=== PATIENT | male | born 1985 | race African-American/Black ===

== ENCOUNTER 2017-02-27 18:35 | Emergency (ER) | payer MEDICAID ==
[~2017-02-27] VITALS: Ht 177.8 cm; Wt 82.6 kg
--- NOTE | 2017-02-27 18:35 | NUR ---
BIB RA 60,SOB/WHEEZING, ALBUTEROL HHN X 2(10 MG) GIVEN ENROUTE. NAD NOTED. PT IS ANXIOUS, CRYING, AAO X4, AMB WITH STEADY GAIT. PENDING MD FOR EVAL.
[2017-02-27] MEDS ORDERED: predniSONE 20 MG TABLET ONE (18:40)
[2017-02-27] MEDS ORDERED: IPRATROPIUM NEB FS 0.5 MG/2.5 ML AMPUL.NEB ONE (18:40)
[2017-02-27] MEDS ORDERED: ALBUTEROL FS 2.5 MG/3 ML VIAL.NEB ONE (18:40)
[2017-02-27] MEDS ORDERED: ALBU8.5H2 IH (18:42)
[2017-02-27] MEDS ORDERED: HYDR12.5 PO (18:42)
[2017-02-27] MEDS: ALBUTEROL FS 2.5 MG/3 ML VIAL.NEB NEB ONE (18:46)
[2017-02-27] MEDS: IPRATROPIUM NEB FS 0.5 MG/2.5 ML AMPUL.NEB NEB ONE (18:46)
--- NOTE | 2017-02-27 18:46 | NUR ---
TIHAGO RT AT BEDSIDE FOR BREATHING TX
[2017-02-27] MEDS: predniSONE 20 MG TABLET PO ONE (18:51)
--- NOTE | 2017-02-27 19:00 | NUR ---
Assumed care of pt. pt lying in bed w/ resp even & unlabored, bp elevated w/ nad distress noted. Dr. Justin notified of elevated BP.
--- NOTE | 2017-02-27 19:24 | NUR ---
Dr. Justin at bedside for further eval. pt asleep in bed w/ resp even & unlabored, easily arousable, denies any pain w/ nad noted.
[2017-02-27] MEDS ORDERED: ALBUTEROL FS 2.5 MG/0.5 ML VIAL.NEB ONE (19:41)
--- NOTE | 2017-02-27 19:42 | NUR ---
DIRECTOR LABOR STANDARDS called for breathing tx.
--- NOTE | 2017-02-27 19:46 | NUR ---
CONVERSION MAN at bedside for breathing tx.
[2017-02-27] MEDS: ALBUTEROL FS 2.5 MG/0.5 ML VIAL.NEB NEB ONE (19:47)
[2017-02-27 20:06] VITALS: BP 167/98
--- NOTE | 2017-02-27 20:07 | NUR ---
Patient ambulatory w/ steady gait, resp even & unlabored with no acute distress noted, discharged to home in stable condition. Written and verbal after care instructions given along with prescriptions. Patient verbalizes understanding of instruction.
== END 2017-02-27 20:09 | disposition home or self-care (01) ==
LOC: ER 18:37
DX: J45.909 Unspecified asthma, uncomplicated (principal); I10 Essential (primary) hypertension
CPT/HCPCS: 71010-TC; A4606

== ENCOUNTER 2017-03-05 22:05 | Emergency (ER) | payer MEDICAID ==
[~2017-03-05] VITALS: Ht 177.8 cm; Wt 77.1 kg
[~2017-03-05 22:05] MED LIST: ALBU8.5H2 IH; HYDR12.5 PO
[2017-03-05 22:20] VITALS: BP 183/118
[2017-03-06] MEDS: IVERMECTIN 3 MG TABLET PO ONE (00:16)
== END 2017-03-06 00:42 | disposition home or self-care (01) ==
LOC: ER 22:07
DX: B86 Scabies (principal); Z59.0 Homelessness; J45.909 Unspecified asthma, uncomplicated; I10 Essential (primary) hypertension; W57.XXXA Bitten or stung by nonvenomous insect and other nonvenomous arthropods, initial encounter; Y93.89 Activity, other specified; Y92.89 Other specified places as the place of occurrence of the external cause; Y99.8 Other external cause status
CPT/HCPCS: 99283; A4606; Z7610

== ENCOUNTER 2017-03-10 18:54 | Emergency (ER) | payer MEDICAID ==
[~2017-03-10] VITALS: Ht 177.8 cm; Wt 79.4 kg
--- NOTE | 2017-03-10 18:56 | NUR ---
PT AMBULATORY TO ER BED 14 C/O SOB. 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 PLACED ON MONITOR. AWAITING MD MORGAN.
--- NOTE | 2017-03-10 19:06 | NUR ---
DR BANERJEE AT BEDSIDE FOR EVAL.
[2017-03-10] MEDS ORDERED: HYDROCHLOROTHIAZIDE 25 MG TABLET ONE (19:08)
[2017-03-10] MEDS ORDERED: ALBUTEROL FS 2.5 MG/0.5 ML VIAL.NEB NEB ONE (19:30)
[2017-03-10] MEDS ORDERED: HYDROCHLOROTHIAZIDE 25 MG TABLET PO ONE (19:30)
[2017-03-10] MEDS ORDERED: ALBUTEROL FS 2.5 MG/3 ML VIAL.NEB ONE (19:52)
--- NOTE | 2017-03-10 19:53 | NUR ---
RT AT BEDSIDE FOR BREATHING TREATMENT.
--- NOTE | 2017-03-10 20:35 | NUR ---
Patient discharged to home in stable condition. Written and verbal after care instructions given. Patient verbalizes understanding of instruction.
[2017-03-10 20:36] VITALS: BP 156/99
== END 2017-03-10 20:36 | disposition home or self-care (01) ==
LOC: ER 18:56
DX: Z76.0 Encounter for issue of repeat prescription (principal); J45.909 Unspecified asthma, uncomplicated; I10 Essential (primary) hypertension; R21 Rash and other nonspecific skin eruption; Z59.0 Homelessness
CPT/HCPCS: 94640; 99283; A4606; Z7610

== ENCOUNTER 2017-03-11 05:19 | Emergency (ER) | payer MEDICAID ==
[~2017-03-11] VITALS: Ht 177.8 cm; Wt 83.9 kg
[2017-03-11] MEDS ORDERED: DEXAMETHASONE SOD PHOSPHATE 10 MG/ML VIAL ONE (05:24)
[2017-03-11] MEDS ORDERED: HYDROCHLOROTHIAZIDE 25 MG TABLET ONE (05:27)
[2017-03-11] MEDS ORDERED: DEXAMETHASONE SOD PHOSPHATE 4 MG/ML VIAL IV ONE (05:30)
[2017-03-11] MEDS ORDERED: ALBUTEROL FS 2.5 MG/3 ML VIAL.NEB NEB ONE (05:30)
[2017-03-11] MEDS ORDERED: ALBUTEROL FS 2.5 MG/3 ML VIAL.NEB ONE (05:32)
--- NOTE | 2017-03-11 05:37 | NUR ---
RT IS AT THE BEDSIDE FOR BREATHING TX.
[2017-03-11] MEDS ORDERED: HYDROCHLOROTHIAZIDE 25 MG TABLET PO ONE (06:00)
[2017-03-11 06:25] VITALS: BP 182/92
== END 2017-03-11 06:25 | disposition home or self-care (01) ==
LOC: ER 05:20
DX: J45.901 Unspecified asthma with (acute) exacerbation (principal); I10 Essential (primary) hypertension; Z91.19 Patient's noncompliance with other medical treatment and regimen
CPT/HCPCS: A4606; J1100; Z7610

== ENCOUNTER 2017-03-20 22:15 | Emergency (ER) | payer MEDICAID ==
[~2017-03-20] VITALS: Ht 175.3 cm; Wt 83.9 kg
--- NOTE | 2017-03-20 22:17 | NUR ---
PT BIB RA AND TAKEN TO ROOM #4 WITH A C/O ASTHMA EXACERBATION. PT REC'D A BREATHING TX IN THE FIELD AND IS SPEAKING IN FULL SENTENCES. O2 SAT ON RA IS 94%. PT IS ON THE MONITOR AND CONTINOUS PULSE OX. PT IS HYPERTENSIVE AT THIS TIME AND SLIGHTLY TACHY WITH HR 114. PT AA&O X4. RESP EVEN AND UNLABORED.
[2017-03-20] MEDS ORDERED: predniSONE 20 MG TABLET PO ONE (22:30)
[2017-03-20] MEDS ORDERED: IPRATROPIUM NEB FS 0.5 MG/2.5 ML AMPUL.NEB NEB ONE (22:30)
[2017-03-20] MEDS ORDERED: ALBUTEROL FS 2.5 MG/3 ML VIAL.NEB NEB ONE (22:30)
[2017-03-20] MEDS ORDERED: predniSONE 20 MG TABLET ONE (22:31)
--- NOTE | 2017-03-20 22:35 | NUR ---
CALLED RT RE: BREATHING TX FOR PT.
--- NOTE | 2017-03-20 22:36 | NUR ---
PT REC'D MEDICATION ORDERED.
[2017-03-20] MEDS ORDERED: ALBUTEROL FS 2.5 MG/3 ML VIAL.NEB ONE (22:48)
[2017-03-20] MEDS ORDERED: IPRATROPIUM NEB FS 0.5 MG/2.5 ML AMPUL.NEB ONE (22:48)
[2017-03-20] MEDS ORDERED: ALBUTEROL SULFATE 8 GM HFA.AER.AD IH ONE ×2 (23:00→23:30)
[2017-03-20] MEDS ORDERED: ALBUTEROL 17GM INHALER ONE (23:01)
--- NOTE | 2017-03-20 23:35 | NUR ---
Patient discharged to home in stable condition. Written and verbal after care instructions given. Patient verbalizes understanding of instruction AND RX. PT AMBULATED OUT WITH A STEADY GAIT. VSS.
[2017-03-20 23:37] VITALS: BP 168/106
== END 2017-03-20 23:37 | disposition home or self-care (01) ==
LOC: ER 22:18
DX: J45.909 Unspecified asthma, uncomplicated (principal); I10 Essential (primary) hypertension; Z59.0 Homelessness
CPT/HCPCS: A4606; Z7610

== ENCOUNTER 2017-05-06 14:18 | Emergency (ER) | payer MEDICAID ==
[~2017-05-06] VITALS: Ht 177.8 cm; Wt 83.9 kg
[2017-05-06] MEDS ORDERED: methylPREDNISolone SOD SUCC 125 MG/2ML VIAL ONE (14:21)
[2017-05-06] MEDS ORDERED: Magnesium 1 GM/2 ML VIAL ONE (14:23)
[2017-05-06] MEDS ORDERED: Magnesium 1GM/D5W 100ML PREMIX 100 ML IV ONE (14:24)
[2017-05-06] MEDS ORDERED: IPRATROPIUM NEB FS 0.5 MG/2.5 ML AMPUL.NEB ONE (14:31)
[2017-05-06] MEDS ORDERED: ALBUTEROL FS 2.5 MG/3 ML VIAL.NEB ONE (14:31)
[2017-05-06] MEDS ORDERED: methylPREDNISolone SOD SUCC 125 MG/2ML VIAL IV ONE (15:00)
[2017-05-06] MEDS ORDERED: ALBUTEROL FS 2.5 MG/3 ML VIAL.NEB CONTNEB ONE (15:00)
[2017-05-06] MEDS ORDERED: IPRATROPIUM NEB FS 0.5 MG/2.5 ML AMPUL.NEB NEB ONE (15:00)
[2017-05-06] MEDS ORDERED: Magnesium 1GM/D5W 100ML PREMIX PIGGYBACK IV ONE (15:00)
[2017-05-06 17:02] VITALS: BP 160/94
== END 2017-05-06 17:03 | disposition home or self-care (01) ==
LOC: ER 14:21
DX: J45.901 Unspecified asthma with (acute) exacerbation (principal); I10 Essential (primary) hypertension; Z59.0 Homelessness; Z87.891 Personal history of nicotine dependence
CPT/HCPCS: 71010-TC; A4606; J2930; J3475; J7030; Z7610

== ENCOUNTER 2017-09-07 13:11 | Inpatient (IN) | payer MEDICAID ==
[~2017-09-07] VITALS: Ht 177.8 cm; Wt 95.3 kg
[~2017-09-07 13:11] MED LIST changes: -ALBU8.5H2 IH; +ALBU8.5H8 IH
--- NOTE | 2017-09-07 13:18 | NUR ---
PT BIBRA TO ER BED 14. C/O COUGH AND CONGESTION, FLU SYMPTOMS X 1 MONTH. 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 GENERALIZED WEAKNESS. PT IS AFEBRILE TRAINING GENERALIST. AWAITING MD MORGAN.
--- NOTE | 2017-09-07 13:44 | NUR ---
CHARIS KHALIL AT BEDSIDE FOR EVAL.
[2017-09-07] MEDS ORDERED: ALBUTEROL FS 2.5 MG/3 ML VIAL.NEB ONE ×2 (13:53→14:40)
[2017-09-07] MEDS ORDERED: IPRATROPIUM NEB FS 0.5 MG/2.5 ML AMPUL.NEB ONE ×2 (13:53→14:40)
[2017-09-07] MEDS ORDERED: HYDROCHLOROTHIAZIDE 25 MG TABLET ONE (13:55)
[2017-09-07] MEDS ORDERED: predniSONE 20 MG TABLET ONE (13:55)
[2017-09-07] MEDS ORDERED: IBUPROFEN 600 MG TABLET PO ONE ×2 (13:55→14:00)
[2017-09-07] MEDS ORDERED: ALBUTEROL FS 2.5 MG/3 ML VIAL.NEB NEB ONE ×2 (14:00→15:00)
[2017-09-07] MEDS ORDERED: HYDROCHLOROTHIAZIDE 25 MG TABLET PO ONE (14:00)
[2017-09-07] MEDS ORDERED: predniSONE 20 MG TABLET PO ONE (14:00)
[2017-09-07] MEDS ORDERED: IPRATROPIUM NEB FS 0.5 MG/2.5 ML AMPUL.NEB NEB ONE ×2 (14:00→15:00)
--- NOTE | 2017-09-07 14:04 | NUR ---
RADIOLOGY AT BEDSIDE FOR CHEST XRAY.
[2017-09-07] MEDS ORDERED: LIDOCAINE HCL/PF 1% 30 ML SDV ONE (14:23)
[2017-09-07] MEDS ORDERED: TDAP [DIPH/PERTUSSIS/TET] 0.5 ML VIAL IM ONE (14:28)
[2017-09-07] MEDS ORDERED: ACETAMINOPHEN ES 500 MG TABLET ONE (14:28)
--- NOTE | 2017-09-07 15:53 | NUR ---
DERRELL PAGED, CADDY/CADDIE SUPERVISOR
--- NOTE | 2017-09-07 15:56 | NUR ---
CALLED NURSING SUP. FOR MS BED
[2017-09-07 16:13] LABS: BASOPHILS # (AUTO) 0.2 /CMM (0.0-0.2); BASOPHILS % (AUTO) 3.5 % (0.0-2.0); EOSINOPHILS # (AUTO) 0.2 /CMM (0.0-0.7); EOSINOPHILS % (AUTO) 4.1 % (0.0-6.0); HEMATOCRIT 43 % (39-51); HEMOGLOBIN 14.3 g/dL (13.5-17.5); LYMPHOCYTES # (AUTO) 0.6 /CMM (0.8-4.8); LYMPHOCYTES % (AUTO) 10.9 % (20.0-44.0); MEAN CORPUSCULAR HEMOGLOBIN 31 PG (26.0-33.0); MEAN CORPUSCULAR HGB CONC 33 g/dl (31.0-36.0); MEAN CORPUSCULAR VOLUME 92 fL (80-96); MONOCYTES # (AUTO) 0.4 /CMM (0.1-1.30); MONOCYTES % (AUTO) 7.2 % (2.0-12.0); NEUTROPHILS # (AUTO) 4.3 /CMM (1.8-8.9); NEUTROPHILS % (AUTO) 74.3 % (43.0-81.0); PLATELET COUNT (AUTO) 244 /CMM (150-450); RDW COEFFICIENT OF VARIATION 11.5 (11.5-15.0); RED BLOOD CELL COUNT(AUTO) 4.65 MIL/uL (4.5-6.0); WHITE BLOOD COUNT (AUTO) 5.7 K/uL (4.3-11.0)
[2017-09-07 16:19] LABS: APPEARANCE,URINE Clear (CLEAR); BILIRUBIN,URINE Negative (NEGATIVE); BLOOD, URINE Small Ery/uL (NEGATIVE); COLOR,URINE Yellow (YELLOW); KETONES,URINE Negative (NEGATIVE); LEUKOCYTE ESTERASE ,URINE Negative (NEGATIVE); NITRITE, URINE Negative (NEGATIVE); PH,URINE 6.5 (5.0-8.0); PROTEIN,URINE 100 mg/dl (NEGATIVE); UGLUCOSE Negative (NEGATIVE); UROBILINOGEN,URINE 0.2 EU/dL (0.2)
[2017-09-07 16:26] LABS: CALCIUM, SERUM 8.6 mg/dL (8.5-10.1); CREATININE 1.4 mg/dL (0.6-1.3); POTASSIUM 3.1 mmol/L (3.5-5.1)
--- NOTE | 2017-09-07 16:37 | NUR ---
CHARIS KHALIL MADE AWARE OF RECENT B/P. NO NEW ORDERS AT THIS TIME. WILL CONTINUE TO MONITOR.
[2017-09-07 16:39] LABS: ALBUMIN 3.4 g/dL (3.4-5.0); BILIRUBIN,DIRECT 0.1 mg/dL (0.0-0.2); BILIRUBIN,TOTAL 0.4 mg/dL (0.2-1.0); TOTAL PROTEIN, SERUM 7.9 g/dL (6.4-8.2)
[2017-09-07 16:41] LABS: BACTERIA,URINE Few /HPF (None Seen); SQUAMOUS EPITHELIAL CELL,UR Few /HPF (None Seen); WBC,URINE 0-2 /HPF (0-3)
[2017-09-07] MEDS ORDERED: HYDR25TA4 PO (16:45)
[2017-09-07] MEDS ORDERED: HYDROCODONE/APAP 5/325MG 1 EACH TABLET PO PRN (17:30)
[2017-09-07] MEDS ORDERED: ZOLPIDEM TARTRATE 5 MG TABLET PO PRN (17:30)
[2017-09-07] MEDS ORDERED: ACETAMINOPHEN 325 MG TABLET PO PRN (17:30)
[2017-09-07] MEDS ORDERED: MAG HYDROX/AL HYDROX/SIMETH 30 ML UDC PO PRN (17:30)
[2017-09-07] MEDS ORDERED: ONDANSETRON HCL/PF 4 MG/2 ML VIAL IVP PRN (17:30)
[2017-09-07] MEDS ORDERED: MAGNESIUM HYDROXIDE 30 ML UDC PO PRN (17:30)
--- NOTE | 2017-09-07 17:40 | NUR ---
TELE 114-1
--- NOTE | 2017-09-07 17:57 | NUR ---
REPORT GIVEN. PT AWAITING TRANSFER TO FLOOR.
[2017-09-07] MEDS ORDERED: POTASSIUM CHLORIDE 20 MEQ TAB.PRT.SR PO ONE ×2 (18:08→18:30)
[2017-09-07 18:30] VITALS: BP 157/105
--- NOTE | 2017-09-07 18:30 | NUR ---
RN NOTES RECEIVED PATIENT FROM ER ALERT, AWAKE, ORIENTED X4 WITH BREATHING NORMAL, EVEN AND UNLABORED. NO SOB NOTED. NO ACUTE DISTRESS NOTED. ON 2L O2 VIA NC, SATURATING WELL. IV LFA IS PATENT AND INTACT, NO INFILTRATION NOTED. BOWEL SOUND PRESENT. PULSES PRESENT. SAFETY MEASURE OBSERVED. CALL LIGHT WITH IN REACH. WILL CONT TO MONITOR.
--- NOTE | 2017-09-07 18:56 | NUR ---
RN NOTES PATIENT ENDORSED TO NEXT SHIFT IN STABLE CONDITION FOR CONTINUITY OF CARE.
[2017-09-07] MEDS: IPRATROPIUM NEB FS 0.5 MG/2.5 ML AMPUL.NEB NEB PRN ×2 (19:51→22:58)
[2017-09-07] MEDS: ALBUTEROL FS 2.5 MG/0.5 ML VIAL.NEB NEB PRN ×2 (19:52→22:58)
[2017-09-07 20:00] VITALS: BP 152/106
[2017-09-07] MEDS: methylPREDNISolone SOD SUCC 40 MG/ML VIAL IV SCH (20:52)
[2017-09-07] MEDS: IV NS 0.9% 1,000 ML IV PRN (20:52)
[2017-09-07] MEDS: HYDROCHLOROTHIAZIDE 25 MG TABLET PO SCH (22:16)
[2017-09-08 04:00] VITALS: BP 182/99
[2017-09-08] MEDS: IPRATROPIUM NEB FS 0.5 MG/2.5 ML AMPUL.NEB NEB PRN ×2 (04:26→09:12)
[2017-09-08] MEDS: ALBUTEROL FS 2.5 MG/0.5 ML VIAL.NEB NEB PRN ×2 (04:26→09:13)
[2017-09-08] MEDS: methylPREDNISolone SOD SUCC 40 MG/ML VIAL IV SCH ×2 (04:59→13:00)
[2017-09-08] MEDS: IV NS 0.9% 1,000 ML IV PRN (04:59)
[2017-09-08] MEDS ORDERED: hydrALAZINE HCL IV 20 MG VIAL IV ONE (06:00)
[2017-09-08] MEDS ORDERED: hydrALAZINE HCL IV 20 MG VIAL ONE (06:02)
[2017-09-08] MEDS ORDERED: hydrALAZINE HCL 25 MG TABLET ONE (06:15)
--- NOTE | 2017-09-08 06:20 | NUR ---
SPOKE TO KEILA ALEJANDRO REGARDING ELEVATED BP, SBP 180'S WITH NEW ORDER TO GIVE HYDRALAZINE 25MG PO TIMES ONE NOW. PT ASYMPTOMATIC, PER PT THIS IS HIS USUAL BP.
[2017-09-08] MEDS ORDERED: hydrALAZINE HCL 25 MG TABLET PO ONE (06:30)
--- NOTE | 2017-09-08 07:15 | NUR ---
RN NOTES RECEIVED PT FROM TIRE TECHNICIAN IN STABLE CONDITION, A&0X3, ON 2L NC SATING WELL. NO SOB OR DISTRESS NOTED. LFA 18G IV SITE DRY AND INTACT WITH IVF @ 125ML/HR. NO COMPLAINTS OF PAIN. BED LOCKED AND IN LOWEST POSITION, CALL LIGHT WITHIN REACH, SIDE RAILS UPX3, WILL CONT TO [place].
[2017-09-08 07:25] LABS: BASOPHILS % (AUTO) 0.2 % (0.0-2.0); EOSINOPHILS % (AUTO) 0.5 % (0.0-6.0); HEMATOCRIT 41 % (39-51); HEMOGLOBIN 13.6 g/dL (13.5-17.5); LYMPHOCYTES # (AUTO) 1.5 /CMM (0.8-4.8); LYMPHOCYTES % (AUTO) 16.1 % (20.0-44.0); MEAN CORPUSCULAR HEMOGLOBIN 31 PG (26.0-33.0); MEAN CORPUSCULAR HGB CONC 33 g/dl (31.0-36.0); MEAN CORPUSCULAR VOLUME 95 fL (80-96); MONOCYTES # (AUTO) 0.9 /CMM (0.1-1.30); MONOCYTES % (AUTO) 9.6 % (2.0-12.0); NEUTROPHILS # (AUTO) 6.7 /CMM (1.8-8.9); NEUTROPHILS % (AUTO) 73.6 % (43.0-81.0); PLATELET COUNT (AUTO) 215 /CMM (150-450); RDW COEFFICIENT OF VARIATION 12.4 (11.5-15.0); RED BLOOD CELL COUNT(AUTO) 4.33 MIL/uL (4.5-6.0); WHITE BLOOD COUNT (AUTO) 9.2 K/uL (4.3-11.0)
[2017-09-08 07:44] LABS: CALCIUM, SERUM 8.3 mg/dL (8.5-10.1); CREATININE 1.2 mg/dL (0.6-1.3); PHOSPHORUS 2.4 mg/dL (2.5-4.9); POTASSIUM 3.4 mmol/L (3.5-5.1)
[2017-09-08 08:00] VITALS: BP 162/117
[2017-09-08 08:38] VITALS: BP 162/117
[2017-09-08] MEDS: HYDROCHLOROTHIAZIDE 25 MG TABLET PO SCH (08:38)
[2017-09-08] MEDS ORDERED: POTASSIUM CHLORIDE 20 MEQ TAB.PRT.SR PO SCH (11:00)
--- NOTE | 2017-09-08 14:39 | NUR ---
Social Service consult requested by KEILA Byrd for homelessness. Pt. is a 31 year old -[place] male who was admitted to [facility] for acute asthma exacerbation. LINDY met with pt. bedside. Pt. is alert and oriented x 3. Pt. states he is homeless and has been homeless for the past 2 to 3 years. Pt. is originally from [place], [place]. SW offered pt. retirement placement, however pt. declined. Pt. stated he wants to go get his belongings that are near the [employer] store on [address] and [address] in [place]. LINDY offered homeless resources and retirement resources to the pt. that pt. accepted. Bus token was offered as well which pt. accepted. Nursing Gluing Machine Adjuster Montserrat was informed regarding pt. needing a bus token. LINDY informed DEAN Garcia regarding pt's discharge plan. Homeless Patient Waiver Form was signed by pt. and a copy was placed in pt's chart. No other social service needs are required at this time. SW is available if needed.
--- NOTE | 2017-09-08 16:22 | NUR ---
RN NOTES PT DISCHARGED IN STABLE CONDITION. PT REFUSED TO BE PLACED IN RETIREMENT, STATED BELONGINGS ARE LEFT ON THE STREET. BUS TOKENS PROVIDED.
[2017-09-08] MEDS ORDERED: K PHOS NEUTRAL 250 MG TABLET PO ONE (16:30)
== END 2017-09-08 16:17 | disposition home or self-care (01) | DRG 141 ==
LOC: ER 13:12 → TELE1 18:20 → MEDSG1 19:46
PROVIDERS: ADMIT Nurse Practitioner Acute Care; ATTEND Nurse Practitioner Acute Care
DX: J45.901 Unspecified asthma with (acute) exacerbation (principal); E87.1 Hypo-osmolality and hyponatremia; I10 Essential (primary) hypertension; E86.1 Hypovolemia; E87.6 Hypokalemia; Z59.0 Homelessness; Z87.891 Personal history of nicotine dependence; E66.9 Obesity, unspecified; F15.11 Other stimulant abuse, in remission; Z68.30 Body mass index [BMI] 30.0-30.9, adult
CPT/HCPCS: 36415; 71010-TC; 80048-TC; 80076-TC; 81000-TC; 83735-TC; 83880; 84100-TC; 85025-TC; 87081-TC; 90715; A4606; A6402; A6403; J0360; J2920; J3490; J7030; Z7610

== ENCOUNTER 2018-01-28 12:37 | Emergency (ER) | payer MEDICAID ==
[~2018-01-28] VITALS: Ht 177.8 cm; Wt 87.5 kg
[~2018-01-28 12:37] MED LIST changes: -HYDR12.5 PO; +HYDR25TA4 PO
--- NOTE | 2018-01-28 12:37 | NUR ---
BIB RA 102 FROM HOME,SOB/WHEEZING, ALBUTEROL HHN GIVEN ENROUTE
[2018-01-28] MEDS ORDERED: predniSONE 20 MG TABLET PO ONE (13:00)
[2018-01-28] MEDS ORDERED: IPRATROPIUM NEB FS 0.5 MG/2.5 ML AMPUL.NEB NEB ONE (13:00)
[2018-01-28] MEDS ORDERED: ALBUTEROL FS 2.5 MG/3 ML VIAL.NEB NEB ONE (13:00)
[2018-01-28] MEDS ORDERED: IPRATROPIUM NEB FS 0.5 MG/2.5 ML AMPUL.NEB ONE (13:04)
[2018-01-28] MEDS ORDERED: ALBUTEROL FS 2.5 MG/3 ML VIAL.NEB ONE (13:04)
[2018-01-28] MEDS ORDERED: predniSONE 20 MG TABLET ONE ×2 (13:09→13:19)
--- NOTE | 2018-01-28 13:26 | NUR ---
LINDY received a call from DEAN Ford in ED requesting for SW to see the pt. and provide resources to clinics so that pt. can get a refill of his asthma medication. LINDY met with pt. bedside and gave him resources to lists of Health care clinics for the homeless in [facility] and a discounted RX card and encouraged pt. to go to a [facility] pharmacy and he will be able to get discounted prescription.
[2018-01-28] MEDS ORDERED: ALBUTEROL FS 2.5 MG/0.5 ML VIAL.NEB NEB ONE (14:00)
[2018-01-28] MEDS ORDERED: ALBUTEROL FS 2.5 MG/0.5 ML VIAL.NEB ONE (14:03)
[2018-01-28 14:29] VITALS: BP 132/85
--- NOTE | 2018-01-28 14:29 | NUR ---
Patient discharged to home in stable condition. Written and verbal after care instructions given. Patient verbalizes understanding of instruction.
== END 2018-01-28 14:33 | disposition home or self-care (01) ==
LOC: ER 12:39
DX: J45.901 Unspecified asthma with (acute) exacerbation (principal); I10 Essential (primary) hypertension; Z60.2 Problems related to living alone
CPT/HCPCS: A4606; Z7610

== ENCOUNTER 2018-04-18 23:34 | Emergency (ER) | payer MEDICAID ==
[~2018-04-18] VITALS: Ht 177.8 cm; Wt 95.3 kg
[2018-04-19] MEDS ORDERED: HYDROCHLOROTHIAZIDE 25 MG TABLET ONE (01:17)
--- NOTE | 2018-04-19 01:17 | NUR ---
CALLED RT FOR BREATHING TREATMENT
[2018-04-19 01:19] VITALS: BP 190/109
[2018-04-19] MEDS ORDERED: HYDROCHLOROTHIAZIDE 25 MG TABLET PO ONE (01:30)
[2018-04-19] MEDS ORDERED: ALBUTEROL FS 2.5 MG/3 ML VIAL.NEB NEB ONE (01:30)
[2018-04-19] MEDS ORDERED: IPRATROPIUM NEB FS 0.5 MG/2.5 ML AMPUL.NEB NEB ONE (01:30)
[2018-04-19] MEDS ORDERED: ALBUTEROL FS 2.5 MG/3 ML VIAL.NEB ONE (01:32)
[2018-04-19] MEDS ORDERED: IPRATROPIUM NEB FS 0.5 MG/2.5 ML AMPUL.NEB ONE (01:32)
== END 2018-04-19 02:09 | disposition home or self-care (01) ==
LOC: ER 23:37
DX: J45.901 Unspecified asthma with (acute) exacerbation (principal); I10 Essential (primary) hypertension; Z60.2 Problems related to living alone; Z79.899 Other long term (current) drug therapy
CPT/HCPCS: A4606; Z7610

== ENCOUNTER 2018-07-06 23:17 | Emergency (ER) | payer MEDICAID ==
[~2018-07-06] VITALS: Ht 177.8 cm; Wt 79.4 kg
--- NOTE | 2018-07-06 23:17 | NUR ---
BIBSELF C/O ASTHMA ATTACK X 20 MINS DINING CAR CONDUCTOR. PT IS HYPERTENSIVE BUT OTHERWISE VSS NO ACUTE DISTRESS NOTED AT THIS TIME. PT IS ALERT AND ORIENTED X4 ABLE TO MAKE NEEDS KNOWN. SKIN WARM AND INTACT. WILL CONTINUE TO MONITOR FOR ANY CHANGES DURING THE SHIFT.
--- NOTE | 2018-07-06 23:18 | NUR ---
ER MD ZEPEDA AT BEDSIDE FOR EVAL
[2018-07-06] MEDS ORDERED: IPRATROPIUM NEB FS 0.5 MG/2.5 ML AMPUL.NEB NEB ONE (23:30)
[2018-07-06] MEDS ORDERED: predniSONE 20 MG TABLET PO ONE (23:30)
[2018-07-06] MEDS ORDERED: ALBUTEROL FS 2.5 MG/3 ML VIAL.NEB NEB ONE (23:30)
--- NOTE | 2018-07-06 23:31 | NUR ---
RT CALLED FOR BREATHING TX
[2018-07-06] MEDS ORDERED: ALBUTEROL FS 2.5 MG/3 ML VIAL.NEB ONE (23:39)
--- NOTE | 2018-07-06 23:40 | NUR ---
VICE PRESIDENT FINANCIAL AT BEDSIDE FOR EVAL
[2018-07-06] MEDS ORDERED: CLONIDINE HCL 0.1 MG TABLET ONE (23:42)
[2018-07-06] MEDS ORDERED: predniSONE 20 MG TABLET ONE (23:43)
--- NOTE | 2018-07-06 23:45 | NUR ---
RT AT BEDSIDE
[2018-07-06] MEDS ORDERED: IPRATROPIUM NEB FS 0.5 MG/2.5 ML AMPUL.NEB ONE (23:46)
[2018-07-06 23:55] LABS: BASOPHILS % (AUTO) 0.5 % (0.0-2.0); HEMATOCRIT 42 % (39-51); HEMOGLOBIN 13.9 g/dL (13.5-17.5); LYMPHOCYTES # (AUTO) 1.9 /CMM (0.8-4.8); LYMPHOCYTES % (AUTO) 26.8 % (20.0-44.0); MEAN CORPUSCULAR HGB CONC 33 g/dl (31.0-36.0); MEAN CORPUSCULAR VOLUME 98 fL (80-96); MONOCYTES # (AUTO) 0.5 /CMM (0.1-1.30); MONOCYTES % (AUTO) 6.7 % (2.0-12.0); NEUTROPHILS # (AUTO) 3.8 /CMM (1.8-8.9); PLATELET COUNT (AUTO) 272 /CMM (150-450); RDW COEFFICIENT OF VARIATION 12.4 (11.5-15.0); RED BLOOD CELL COUNT(AUTO) 4.31 MIL/uL (4.5-6.0); WHITE BLOOD COUNT (AUTO) 7.1 K/uL (4.3-11.0)
[2018-07-07] MEDS ORDERED: CLONIDINE HCL 0.1 MG TABLET PO ONE
[2018-07-07 00:08] LABS: CALCIUM, SERUM 8.5 mg/dL (8.5-10.1); CARBON DIOXIDE 30 mmol/L (21-32); CHLORIDE 102 mmol/L (98-107); CREATININE 1.2 mg/dL (0.6-1.3); GLUCOSE 103 mg/dL (74-106); POTASSIUM 3.2 mmol/L (3.5-5.1); SODIUM SERUM 139 mmol/L (136-145); UREA NITROGEN, BLOOD 15 mg/dL (7-18)
[2018-07-07 00:14] LABS: TROPONIN I < 0.017 ng/mL (0.00-0.056)
[2018-07-07 00:22] LABS: ALANINE AMINOTRANSFERASE 25 U/L (12-78); ALBUMIN 3.5 g/dL (3.4-5.0); ALKALINE PHOSPHATASE 95 U/L (46-116); ASPARTATE AMINOTRANSFERASE 23 U/L (15-37); B-TYPE NATRIURETIC PEPTIDE 65 PG/ML (0-125); BILIRUBIN,TOTAL 0.3 mg/dL (0.2-1.0); TOTAL PROTEIN, SERUM 7.8 g/dL (6.4-8.2)
--- NOTE | 2018-07-07 00:50 | NUR ---
CALLED RT FOR BREATHING TX.
[2018-07-07] MEDS ORDERED: POTASSIUM CHLORIDE 20 MEQ TAB.PRT.SR PO ONE ×2 (00:59→01:00)
[2018-07-07] MEDS ORDERED: ALBUTEROL FS 2.5 MG/3 ML VIAL.NEB CONTNEB ONE (01:00)
[2018-07-07] MEDS ORDERED: ALBUTEROL FS 2.5 MG/3 ML VIAL.NEB ONE (01:03)
--- NOTE | 2018-07-07 02:25 | NUR ---
PT SLEEPING COMFORTABLY IN BED. WILL CONTINUE TO MONITOR FOR ANY CHANGES DURING THE SHIFT.
[2018-07-07 03:14] VITALS: BP 160/99
[2018-07-07] MEDS ORDERED: DILTIAZEM HCL IV 125 MG in IV D5W 100 ML IV ONE (03:30)
== END 2018-07-07 03:14 | disposition home or self-care (01) ==
LOC: ER 23:19
DX: J45.901 Unspecified asthma with (acute) exacerbation (principal); E87.6 Hypokalemia; I10 Essential (primary) hypertension; Z60.2 Problems related to living alone
CPT/HCPCS: 36415; 71045; 80053; 83880; 84484; 85025; 94640 ×2; 99285; J3490; J7060; J7512; A4606; Z7610